=== PATIENT | female | born 1980 | race Caucasian/White ===

== ENCOUNTER → 2017-10-17 | Outpatient (REF) | payer OTHER ==
[2017-10-17 18:56] LABS: TOTAL 25(OH) VITAMIN D 53.5 NG/ML (30.0-100.0)
[2017-10-17 20:13] LABS: BASO % 0.2 % (0.0-1.0); EOS % 0.3 % (0.0-3.0); HEMATOCRIT 39.6 % (36.0-47.0); HEMOGLOBIN 12.9 g/dl (12.0-15.5); IMMATURE GRANULOCYTE % 0.3 % (0-3.0); LYMPH # 3.2 10^3/uL (1.5-4.5); LYMPH % 21.8 % (24.0-44.0); MEAN CORPUSCULAR HEMOGLOBIN 25.5 pg (27.0-33.0); MEAN CORPUSCULAR HGB CONC 32.6 g/dl (32.0-36.5); MEAN CORPUSCULAR VOLUME 78.4 fl (80.0-96.0); MONO # 0.8 10^3/uL (0.0-0.8); MONO % 5.7 % (0.0-5.0); NEUTROPHILS # 10.4 10^3/uL (1.8-7.7); NEUTROPHILS % 71.7 % (36.0-66.0); PLATELET COUNT, AUTOMATED 355 10^3/uL (150-450); RED BLOOD COUNT 5.05 10^6/uL (4.00-5.40); RED CELL DISTRIBUTION WIDTH 12.9 % (11.5-14.5); WHITE BLOOD COUNT 14.5 10^3/uL (4.0-10.0)
[2017-10-22 00:08] LABS: AMPHETAMINE SCREEN, URINE Negative ng/mL (Cutoff=1000); BARBITURATES SCREEN, URINE Negative ng/mL (Cutoff=200); BENZODIAZEPINES, URINE SCREEN Negative ng/mL (Cutoff=200); CANNABINOID SCREEN, URINE Negative ng/mL (Cutoff=20); COCAINE SCREEN, URINE Negative ng/mL (Cutoff=300); CREATININE, URINE 20.2 mg/dL (20.0-300.0); FENTANYL URINE SCREEN Negative pg/mL (Cutoff=2000); METHADONE, URINE SCREEN Negative ng/mL (Cutoff=300); OPIATE SCREEN, URINE Negative ng/mL (Cutoff=300); OXYCODONE, SCREEN, URINE Negative ng/mL (Cutoff=100); PCP SCREEN, URINE Negative ng/mL (Cutoff=25); SPECIFIC GRAVITY, URINE 1.004 (.); pH, URINE 6.9 (4.5-8.9)
== END ==
LOC: M SFHCPLAZ 16:09
DX: F33.40 Major depressive disorder, recurrent, in remission, unspecified (principal); Z51.81 Encounter for therapeutic drug level monitoring; E55.9 Vitamin D deficiency, unspecified; R10.31 Right lower quadrant pain
CPT/HCPCS: 82306

== ENCOUNTER → 2017-11-14 | Outpatient (CLI) | payer OTHER | LOC: M RAD 12:30 | DX: R10.31 Right lower quadrant pain (principal) | CPT/HCPCS: 76856 ==

== ENCOUNTER 2017-11-18 17:32 | Emergency (ER) | payer OTHER ==
[2017-11-18] MEDS: MORPHINE 4 MG/ML 1ML VIAL/SYRINGE (J2270) IM (19:48)
[2017-11-18] MEDS: KETOROLAC 60 MG/2 ML VIAL (J1885) IM (19:49)
[2017-11-18] MEDS: diazePAM 5 MG TAB PO (19:49)
[2017-11-18] MEDS: ONDANSETRON 4 MG ORAL DISINTEGRATING TAB (Q0162 PER 1MG) PO (19:49)
== END 2017-11-18 21:12 | disposition home or self-care (01) ==
LOC: M ED 17:32
DX: S29.012A Strain of muscle and tendon of back wall of thorax, initial encounter (principal); X58.XXXA Exposure to other specified factors, initial encounter; Y92.89 Other specified places as the place of occurrence of the external cause; M54.12 Radiculopathy, cervical region; M50.21 Other cervical disc displacement, high cervical region; M12.88 Other specific arthropathies, not elsewhere classified, other specified site; K21.9 Gastro-esophageal reflux disease without esophagitis; F17.210 Nicotine dependence, cigarettes, uncomplicated; Z86.69 Personal history of other diseases of the nervous system and sense organs; Z98.890 Other specified postprocedural states
CPT/HCPCS: J2270

== ENCOUNTER 2018-07-25 01:54 | Emergency (ER) | payer OTHER ==
[~2018-07-25] VITALS: Ht 162.6 cm; Wt 129.6 kg
[~2018-07-25 01:54] MED LIST: CLON2TAB7 PO; FLUO40CA PO; HYDR-4517 PO; META1TAB22 PO; NAPR-837 PO; OMEP40CA2 PO; PRED20TA PO; TOPI25TA10 PO; VALI5TAB PO; VITA50005 PO; VYVA30CA4 PO
[2018-07-25 01:55] VITALS: BP 168/92
== END 2018-07-25 04:53 | disposition left against medical advice (07) ==
LOC: M ED 01:54
DX: R29.818 Other symptoms and signs involving the nervous system (principal); Z53.21 Procedure and treatment not carried out due to patient leaving prior to being seen by health care provider

== ENCOUNTER → 2018-07-29 | Outpatient (CLI) | payer OTHER ==
--- NOTE | 2018-07-29 10:40 | REP ---
MAXILLOFACIAL CT WITHOUT CONTRAST: HISTORY: Atypical facial pain. Minimal mucosal thickening is present in the right maxillary sinus. 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 The remaining sinuses are clear. The ostiomeatal units are patent. The middle and inferior nasal turbinates are partially paradoxical. There is parul bullosa of the right middle nasal turbinate. There is minimal deviation of the nasal septum to the left superiorly and to the right inferiorly. The cribriform plate, medial montero of the orbits and optic canals are intact. The carotid canals form a segment of the posterolateral montero of the sphenoid sinus. The sphenoid sinus septum inserts into the right internal carotid canal wall. IMPRESSION: 1. Minimal right maxillary sinus mucosal thickening. 2. 4 mm left ethmoid sinus osteoma. Electronically Signed by Rigo Fernandez MD 07/29/2018 10:43 A
== END ==
LOC: M RAD 09:47
PROVIDERS: ATTEND Otolaryngology
DX: R51 Headache (principal)